=== PATIENT | female | born 1960 | race Caucasian/White ===

== ENCOUNTER 2017-12-06 16:18 | Inpatient (IN) | payer OTHER ==
[2017-12-06 16:52] LABS: Appearance,Urine Turbid (Clear); Bacteria,Urine Moderate /hpf; Bilirubin,Urine Negative (Negative); Blood,Urine Moderate (Negative); Color,Urine Yellow; Glucose,Urine (UA) Negative (Negative); Ketones,Urine Trace (Negative); Leukocyte Esterase,Urine Large (Negative); Mucus,Urine Rare /hpf; Nitrite,Urine Negative (Negative); Protein,Urine 2+ (Negative); RBC,Urine >182 /hpf (0-5); Specific Gravity,Urine 1.013 (1.001-1.035); Squamous Epithelial Cell,Urine <1 /hpf (0-4); Urobilinogen,Urine <2.0 mg/dL (<2.0); WBC,Urine >182 /hpf (0-5)
[2017-12-06] MEDS ORDERED: ONDANSETRON 4 MG/2 ML VIAL IVP STA (17:05)
[2017-12-06] MEDS ORDERED: cefTRIAXone IN SWFI 1,000 MG/10 ML SYRINGE IVP STA (17:05)
[2017-12-06] MEDS ORDERED: KETOROLAC 30 MG/ML 1 ML VIAL IVP STA (17:05)
[2017-12-06] MEDS ORDERED: SODIUM CHLORIDE 0.9% 2,000 ML IV ONE (17:05)
[2017-12-06] MEDS ORDERED: ACETAMINOPHEN TAB 500 MG TAB PO STA (17:05)
[2017-12-06] MEDS ORDERED: cefTRIAXone IN SWFI 2,000 MG/20 ML SYRINGE IVP STA (17:08)
--- NOTE | 2017-12-06 17:21 | ED ---
Abdominal Pain HPI - General Chief Complaint: Abdominal Pain Stated Complaint: Urogenital Time Seen by Provider: 12/06/17 17:00 Source: patient, RN notes reviewed Mode of arrival: ambulatory Limitations: no limitations - History of Present Illness Initial Comments: This is a 57-year-old female presents emergency Department chief complaint of dysuria, abdominal pain for one week. She states that she symptoms have progressively getting worse. She states she's been trying [id number] medications, increasing her fluid intake and water and cranberry juice. She states that has not helped. She is now developed severe flank pain, fever. She states she generalized feels fatigued and not her normal self. Patient denies any chest pain, shortness breath, headache, dizziness, diarrhea constipation. - Related Data Home Medications Medication Instructions Recorded Confirmed Acetaminophen [Tylenol] 325 mg PO Q4H 06/15/15 12/06/17 Atenolol 25 mg PO QAM 06/15/15 12/06/17 Levothyroxine Sodium [Synthroid] 125 mcg PO QAM 06/15/15 12/06/17 Potassium 99 mg PO DAILY 06/15/15 12/06/17 Omeprazole [PriLOSEC] 40 mg PO DAILY 01/21/16 12/06/17 Previous Rx's Medication Instructions Recorded Famotidine [Pepcid] 20 mg PO DAILY #14 tablet 01/21/16 Allergies Allergy/AdvReac Type Severity Reaction Status Date / Time Penicillins Allergy Rash/Hives Verified 12/06/17 16:28 Review of Systems ROS Statement: Those systems with pertinent positive or pertinent negative responses have been documented in the HPI. ROS Other: All systems not noted in ROS Statement are negative. Past Medical History Past Medical History: Hypertension Additional Past Medical History / Comment(s): BLEEDING ULCER History of Any Multi-Drug Resistant Organisms: None Reported Past Surgical History: Ear Surgery, Hysterectomy Additional Past Surgical History / Comment(s): RECONSTRUCTION OF EAR DRUM Past Psychological History: No Psychological Hx Reported Smoking Status: Never smoker Past Alcohol Use History: None Reported Past Drug Use History: None Reported General Exam Limitations: no limitations General appearance: alert, in no apparent distress Head exam: Present: atraumatic, normocephalic, normal inspection Respiratory exam: Present: normal lung sounds bilaterally. Absent: respiratory distress, wheezes, rales, rhonchi, stridor Cardiovascular Exam: Present: normal rhythm, tachycardia, normal heart sounds. Absent: systolic murmur, diastolic murmur, rubs, gallop, clicks GI/Abdominal exam: Present: soft, tenderness (Moderate suprapubic tenderness), normal bowel sounds. Absent: distended, guarding, rebound, rigid Back exam: Present: CVA tenderness (R), CVA tenderness (L) Skin exam: Present: warm, dry, intact, normal color. Absent: rash Course Vital Signs 12/06/17 12/06/17 12/06/17 16:25 17:45 19:03 Temperature 102.9 F H 99.1 F Pulse Rate 116 H 101 H 84 Respiratory 18 24 20 Rate Blood Pressure 133/92 124/58 96/55 O2 Sat by Pulse 96 95 95 Oximetry Medical Decision Making - Lab Data Result diagrams: 12/06/17 17:30 12/06/17 17:30 Lab Results 12/06/17 12/06/17 12/06/17 Range/Units 16:29 17:30 17:30 WBC 18.4 H (3.8-10.6) k/uL RBC 4.68 (3.80-5.40) m/uL Hgb 13.8 (11.4-16.0) gm/dL Hct 40.0 (34.0-46.0) % MCV 85.5 (80.0-100.0) fL MCH 29.5 (25.0-35.0) pg MCHC 34.5 (31.0-37.0) g/dL RDW 13.1 (11.5-15.5) % Plt Count 222 (150-450) k/uL Neutrophils % 81 % Lymphocytes % 12 % Monocytes % 5 % Eosinophils % 0 % Basophils % 0 % Neutrophils # 14.9 H (1.3-7.7) k/uL Lymphocytes # 2.2 (1.0-4.8) k/uL Monocytes # 0.9 (0-1.0) k/uL Eosinophils # 0.0 (0-0.7) k/uL Basophils # 0.1 (0-0.2) k/uL Sodium 137 (137-145) mmol/L Potassium 4.0 (3.5-5.1) mmol/L Chloride 99 (98-107) mmol/L Carbon Dioxide 25 (22-30) mmol/L Anion Gap 13 mmol/L BUN 14 (7-17) mg/dL Creatinine 1.11 H (0.52-1.04) mg/dL Est GFR (CKD-EPI)AfAm 64 (>60 ml/min/1.73 sqM) Est GFR (CKD-EPI)NonAf 56 (>60 ml/min/1.73 sqM) Glucose 112 H (74-99) mg/dL Plasma Lactic Acid Rajinder (0.7-2.0) mmol/L Calcium 8.9 (8.4-10.2) mg/dL Total Bilirubin 1.3 (0.2-1.3) mg/dL AST 34 (14-36) U/L ALT 48 (9-52) U/L Alkaline Phosphatase 95 (38-126) U/L Total Protein 7.1 (6.3-8.2) g/dL Albumin 4.0 (3.5-5.0) g/dL Urine Color Yellow Urine Appearance Turbid H (Clear) Urine pH 6.0 (5.0-8.0) Ur Specific [place] 1.013 (1.001-1.035) Urine Protein 2+ H (Negative) Urine Glucose (UA) Negative (Negative) Urine Ketones Trace H (Negative) Urine Blood Moderate H (Negative) Urine Nitrite Negative (Negative) Urine Bilirubin Negative (Negative) Urine Urobilinogen <2.0 (<2.0) mg/dL Ur Leukocyte Esterase Large H (Negative) Urine RBC >182 H (0-5) /hpf Urine WBC >182 H (0-5) /hpf Urine WBC Clumps Few H (None) /hpf Ur Squamous Epith Cells <1 (0-4) /hpf Urine Bacteria Moderate H (None) /hpf Urine Mucus Rare H (None) /hpf 12/06/17 Range/Units 17:30 WBC (3.8-10.6) k/uL RBC (3.80-5.40) m/uL Hgb (11.4-16.0) gm/dL Hct (34.0-46.0) % MCV (80.0-100.0) fL MCH (25.0-35.0) pg MCHC (31.0-37.0) g/dL RDW (11.5-15.5) % Plt Count (150-450) k/uL Neutrophils % % Lymphocytes % % Monocytes % % Eosinophils % % Basophils % % Neutrophils # (1.3-7.7) k/uL Lymphocytes # (1.0-4.8) k/uL Monocytes # (0-1.0) k/uL Eosinophils # (0-0.7) k/uL Basophils # (0-0.2) k/uL Sodium (137-145) mmol/L Potassium (3.5-5.1) mmol/L Chloride (98-107) mmol/L Carbon Dioxide (22-30) mmol/L Anion Gap mmol/L BUN (7-17) mg/dL Creatinine (0.52-1.04) mg/dL Est GFR (CKD-EPI)AfAm (>60 ml/min/1.73 sqM) Est GFR (CKD-EPI)NonAf (>60 ml/min/1.73 sqM) Glucose (74-99) mg/dL Plasma Lactic Acid Rajinder 1.1 (0.7-2.0) mmol/L Calcium (8.4-10.2) mg/dL Total Bilirubin (0.2-1.3) mg/dL AST (14-36) U/L ALT (9-52) U/L Alkaline Phosphatase (38-126) U/L Total Protein (6.3-8.2) g/dL Albumin (3.5-5.0) g/dL Urine Color Urine Appearance (Clear) Urine pH (5.0-8.0) Ur Specific [place] (1.001-1.035) Urine Protein (Negative) Urine Glucose (UA) (Negative) Urine Ketones (Negative) Urine Blood (Negative) Urine Nitrite (Negative) Urine Bilirubin (Negative) Urine Urobilinogen (<2.0) mg/dL Ur Leukocyte Esterase (Negative) Urine RBC (0-5) /hpf Urine WBC (0-5) /hpf Urine WBC Clumps (None) /hpf Ur Squamous Epith Cells (0-4) /hpf Urine Bacteria (None) /hpf Urine Mucus (None) /hpf Disposition Clinical Impression: Acute pyelonephritis, Nephrolithiasis, Left ureter dilated, Fever, Acute kidney injury Disposition: ADMITTED IP TO THIS [facility] Condition: Fair Referrals: Palmer Fontaine MD [Primary Care Provider] - 1-2 days
[2017-12-06 17:57] LABS: Basophils # (A) 0.1 k/uL (0-0.2); Basophils % (A) 0 %; Eosinophils % (A) 0 %; HGB 13.8 gm/dL (11.4-16.0); Lymphocytes # (A) 2.2 k/uL (1.0-4.8); Lymphocytes % (A) 12 %; MCH 29.5 pg (25.0-35.0); MCHC 34.5 g/dL (31.0-37.0); MCV 85.5 fL (80.0-100.0); Mean Platelet Volume 7.3; Monocytes # (A) 0.9 k/uL (0-1.0); Monocytes % (A) 5 %; Neutrophils # (A) 14.9 k/uL (1.3-7.7); Neutrophils % (A) 81 %; Platelet Count 222 k/uL (150-450); RBC 4.68 m/uL (3.80-5.40); RDW 13.1 % (11.5-15.5); WBC 18.4 k/uL (3.8-10.6)
[2017-12-06 18:18] LABS: Calcium 8.9 mg/dL (8.4-10.2); Total Bilirubin 1.3 mg/dL (0.2-1.3); Total Protein 7.1 g/dL (6.3-8.2)
--- NOTE | 2017-12-06 19:09 | CT ---
EXAMINATION TYPE: CT abdomen pelvis wo con DATE OF EXAM: 12/06/2017 COMPARISON: NONE HISTORY: Left side flank pain and hematuria. CT DLP: 1006.6 mGycm Automated exposure control for dose reduction was used. TECHNIQUE: Helical acquisition of images was performed from the lung bases through the pelvis. FINDINGS: LUNG BASES: Subsegmental consolidation at both lung bases. Atelectasis favored. LIVER/GB: Reduced attenuation of liver is associated with hepatic steatosis. PANCREAS: No significant abnormality is seen. SPLEEN: No significant abnormality is seen. ADRENALS: Mild thickening of the left adrenal gland. KIDNEYS: There is a 1.1 cm mid upper pole left renal calculus. There is hydronephrosis and perinephri c edema. Uterus prominent in size but there is no definite ureteral calculus. URINARY BLADDER: No significant abnormality is seen. ADENOPATHY: None visualized. OSSEOUS STRUCTURES: Hypertrophic and degenerative change of the spine. BOWEL: Bowel gas pattern nonspecific. Appendix not identified with certainty. OTHER: Aorta of normal caliber. No free fluid. No free air. IMPRESSION: 1. There is left-sided perinephric edema with a 1.1 cm mid to upper pole calculus. The ureter does ap pear to be prominent there is no evidence of ureteral calculus. No bladder calculus seen. Correlate f or recently passed stone otherwise consider obstructive changes secondary to be renal calculus with p ossible infection. Correlate with urinalysis. 2. Hepatic steatosis.
[2017-12-06] MEDS ORDERED: ONDANSETRON 4 MG/2 ML VIAL IVP PRN (19:28)
[2017-12-06] MEDS ORDERED: MORPHINE SULFATE 4 MG/ML SYRINGE IV PRN (19:28)
[2017-12-06] MEDS ORDERED: NALOXONE 0.4 MG/ML 1 ML VIAL IV PRN (19:28)
[2017-12-06] MEDS: SODIUM CHLORIDE 0.9% 1,000 ML IV SCH (20:13)
[2017-12-06 20:27] VITALS: BMI 39.9
--- NOTE | 2017-12-06 21:04 | P.GSCN ---
History of Present Illness Consult date: 12/06/17 History of present illness: This is a 57-year-old female whom we are asked to see for a urinary tract infection with sepsis, hydronephrosis, kidney stone. Patient who has a history of ureteral stones in the past days that for the past week she has had lower urinary tract symptoms dysuria frequency pressure and symptoms of urine infection. As the week progressed the symptoms pushed into her upper abdomen and into her flank. She had intermittent fever and chills during the week. The pain nausea and vomiting worsened such she presented to the emergency room today. In the emergency room she had a temperature 102.9, a white count of 18, 000. Her urine was infected. She had a computed tomography scan showing a 1.1 cm stone in her left upper pole, hydroureteronephrosis all the way down to the ureterovesical junction without obvious stone. The patient is interviewed at the bedside and is feeling much better this afternoon than she did when she presented to the emergency room. Based on her history, the appearance of the computed tomography scan and her present clinical state I suspect that she passed a ureteral stone. The patient has passed many ureteral stones in the past. They've never been surgically removed. She has never seen a urologist. The stones that never been collected to be analyzed. She is known about the left kidney stone for many years but it has been treated. There is not a history of chronic urinary infections. Review of Systems - Constitutional Reports as per HPI, Reports anorexia, Reports chills - Gastrointestinal Reports abdominal pain - Genitourinary Genitourinary: Reports as per HPI Past Medical History Past Medical History: GI Bleed, Hypertension Additional Past Medical History / Comment(s): BLEEDING ULCER History of Any Multi-Drug Resistant Organisms: None Reported Past Surgical History: Ear Surgery, Hysterectomy Additional Past Surgical History / Comment(s): RECONSTRUCTION OF EAR DRUM Past Anesthesia/Blood Transfusion Reactions: No Reported Reaction Past Psychological History: No Psychological Hx Reported Smoking Status: Never smoker Past Alcohol Use History: None Reported Past Drug Use History: None Reported - Past Family History Mother Family Medical History: No Reported History Medications and Allergies Home Medications Medication Instructions Recorded Confirmed Type Acetaminophen [Tylenol] 325 mg PO Q4H 06/15/15 12/06/17 History Atenolol 25 mg PO QAM 11/19/15 05/12/18 History Levothyroxine Sodium [Synthroid] 125 mcg PO QAM 06/15/15 12/06/17 History Potassium 99 mg PO DAILY 06/15/15 12/06/17 History Famotidine [Pepcid] 20 mg PO DAILY #14 tablet 01/21/16 12/06/17 Rx Omeprazole [PriLOSEC] 40 mg PO DAILY 01/21/16 12/06/17 History Allergies Allergy/AdvReac Type Severity Reaction Status Date / Time Penicillins Allergy Rash/Hives Verified 12/06/17 16:28 Surgical - Exam Vital Signs Temp Pulse Resp BP Pulse Ox 102.9 F H 116 H 18 133/92 96 12/06/17 16:25 12/06/17 16:25 12/06/17 16:25 12/06/17 16:25 12/06/17 16:25 - General well developed, well nourished, no distress - Eyes PERRL - ENT no hearing loss - Neck trachea midline - Respiratory normal expansion, normal respiratory effort - Cardiovascular Rhythm: regular - Abdomen Abdomen: soft, non tender - Integumentary no rash, no growths - Neurologic normal coordination, normal sensation - Musculoskeletal normal posture - Psychiatric oriented to time, oriented to person, oriented to place, speech is normal, memory intact Results - Labs 12/06/17 17:30 12/06/17 17:30 Abnormal Lab Results - Last 24 Hours (Table) 12/06/17 12/06/17 12/06/17 Range/Units 16:29 17:30 17:30 WBC 18.4 H (3.8-10.6) k/uL Neutrophils # 14.9 H (1.3-7.7) k/uL Creatinine 1.11 H (0.52-1.04) mg/dL Glucose 112 H (74-99) mg/dL Urine Appearance Turbid H (Clear) Urine Protein 2+ H (Negative) Urine Ketones Trace H (Negative) Urine Blood Moderate H (Negative) Ur Leukocyte Esterase Large H (Negative) Urine RBC >182 H (0-5) /hpf Urine WBC >182 H (0-5) /hpf Urine WBC Clumps Few H (None) /hpf Urine Bacteria Moderate H (None) /hpf Urine Mucus Rare H (None) /hpf Diabetes panel 12/06/17 Range/Units 17:30 Sodium 137 (137-145) mmol/L Potassium 4.0 (3.5-5.1) mmol/L Chloride 99 (98-107) mmol/L Carbon Dioxide 25 (22-30) mmol/L BUN 14 (7-17) mg/dL Creatinine 1.11 H (0.52-1.04) mg/dL Glucose 112 H (74-99) mg/dL Calcium 8.9 (8.4-10.2) mg/dL AST 34 (14-36) U/L ALT 48 (9-52) U/L Alkaline Phosphatase 95 (38-126) U/L Total Protein 7.1 (6.3-8.2) g/dL Albumin 4.0 (3.5-5.0) g/dL Calcium panel 12/06/17 Range/Units 17:30 Calcium 8.9 (8.4-10.2) mg/dL Albumin 4.0 (3.5-5.0) g/dL Pituitary panel 12/06/17 Range/Units 17:30 Sodium 137 (137-145) mmol/L Potassium 4.0 (3.5-5.1) mmol/L Chloride 99 (98-107) mmol/L Carbon Dioxide 25 (22-30) mmol/L BUN 14 (7-17) mg/dL Creatinine 1.11 H (0.52-1.04) mg/dL Glucose 112 H (74-99) mg/dL Calcium 8.9 (8.4-10.2) mg/dL Adrenal panel 12/06/17 Range/Units 17:30 Sodium 137 (137-145) mmol/L Potassium 4.0 (3.5-5.1) mmol/L Chloride 99 (98-107) mmol/L Carbon Dioxide 25 (22-30) mmol/L BUN 14 (7-17) mg/dL Creatinine 1.11 H (0.52-1.04) mg/dL Glucose 112 H (74-99) mg/dL Calcium 8.9 (8.4-10.2) mg/dL Total Bilirubin 1.3 (0.2-1.3) mg/dL AST 34 (14-36) U/L ALT 48 (9-52) U/L Alkaline Phosphatase 95 (38-126) U/L Total Protein 7.1 (6.3-8.2) g/dL Albumin 4.0 (3.5-5.0) g/dL - Imaging CT scan - abdomen: report reviewed, image reviewed CT scan - pelvis: report reviewed, image reviewed Assessment and Plan Assessment: Impression: Acute ureteral colic, urinary tract infection with sepsis, pyonephrosis , probable ureteral calculus passed, left renal stone Recommendations: Based on her clinical history and her present clinical status I believe she is passed a ureteral stone and face of the urine infection and she developed pyonephrosis due to the infection and obstructing stone that appears to have passed based on the CAT scan and are now improved clinical situation. At this point in time I do not think urologic surgical intervention is required. I would continue with antibiotics. A urologic standpoint she can be discharged tomorrow if she is afebrile and feeling well. Obviously she goes home the treatment would be an. Until the culture is finalized. She febrile or having more pain than I would continue the hospitalization. Treatment of the left renal stone will be elective at a later date as she has had this for some time. Time with Patient: Greater than 30
[2017-12-06] MEDS ORDERED: HYDROcodone/APAP 5-325MG 1 EACH TAB PO PRN (23:24)
[2017-12-06] MEDS ORDERED: TEMAZEPAM 15 MG CAP PO PRN (23:42)
[2017-12-06] MEDS ORDERED: ALPRAZolam 0.25 MG TAB PO PRN (23:42)
[2017-12-07] MEDS: PANTOPRAZOLE 40 MG/10 ML VIAL IVP SCH ×2 (00:07→09:03)
[2017-12-07] MEDS: KETOROLAC 30 MG/ML 1 ML VIAL IVP PRN ×2 (00:17→05:36)
[2017-12-07] MEDS: SODIUM CHLORIDE 0.9% 1,000 ML IV SCH ×4 (03:49→23:54)
--- NOTE | 2017-12-07 04:19 | HP ---
HISTORY AND PHYSICAL DATE OF SERVICE: 12/06/2017 CHIEF COMPLAINTS: Fever and back pain. HISTORY OF PRESENT ILLNESS: This 57-year-old woman with a past medical history of multiple medical problems including GI bleed, hypertension, history of bleeding also being followed by Dr. Palmer Fontaine in the outpatient setting, not feeling well since last Friday. The patient had dysuria. Subsequently patient had abdominal pain and back pain. Patient progressively getting worse. Patient was developing fever and came to [facility] and admitted for further evaluation and treatment. On admission, the patient was found to have white count of 18.4. UA shows multiple abnormalities and abdominal pelvis CAT scan was also done which showed evidence of left-sided perinephric edema with 1.1 cm mid to upper pole calculus and some prominence of the ureter with the and hepatic steatosis. There is no history any headache, loss of consciousness, seizures at this time. Broad- spectrum IV antibiotics initiated. Urology consultation has been sought. PAST MEDICAL HISTORY: History of GI bleed, hypertension, history of bleeding ulcer, history of previous urolithiasis. MEDICATIONS: Prior to admission: 1. Potassium 99 mg p.o. daily. 2. Prilosec 40 mg p.o. daily. 3. Synthroid 120 mcg p.o. daily. 4. Pepcid 20 mg p.o. daily. 5. Atenolol 25 mg p.o. 6. Tylenol 325 mg q.4h p.r.n. ALLERGIES: PENICILLIN. FAMILY HISTORY: No history of heart disease or strokes in the family. SOCIAL HISTORY: No history of smoking. No history of alcohol intake. REVIEW OF SYSTEMS: ENT: No diminished hearing or vision. CARDIOVASCULAR: No angina or palpitations. RESPIRATORY: As mentioned. GI: No nausea. : As mentioned earlier. NERVOUS SYSTEM: No numbness or weakness. ALLERGY/IMMUNOLOGY: No asthma. MUSCULOSKELETAL: As mentioned earlier. HEMATOLOGY: NO history of anemia. ENDOCRINE: Hypothyroidism. CONSTITUTIONAL: As mentioned earlier. DERMATOLOGY: negative. RHEUMATOLOGY: Negative. PSYCHIATRY: As mentioned earlier. PHYSICAL EXAMINATION: Alert and oriented x3. Pulse 84, blood pressure 106/62, respirations 16, temperature 98.4, pulse ox 94% on room air. HEENT: Conjunctivae normal. Oral mucosa moist. NECK: No jugular venous distention. No carotid bruit. No lymph node enlargement. CARDIOVASCULAR: S1, S2. No S3, no S4. RESPIRATORY: Breath sounds diminished in the bases. A few scattered rhonchi. No crackles. ABDOMEN: Soft. Mild diffuse discomfort on palpation. Bilateral renal angle tenderness and some tenderness in the back also present, left more than the right. Bowel sounds present. No ascites. No mass palpable. LEGS: No edema, no swelling. NERVOUS SYSTEM: Higher functions as mentioned. Moves all 4 limbs. No focal motor sensory deficit. LYMPHATICS: No lymphadenopathy in the neck, axillae, groin. SKIN: No ulcer, rash, bleeding. LAB STUDIES: WBC 18.5, hemoglobin 13.8, creatinine is 1.1, glucose 112. UA noted. ASSESSMENT: 1. Acute urinary tract infection with pyelonephritis bilateral, left more than the right with sepsis, present on admission. 2. Left-sided nephrolithiasis with possibly passed ureteric stone. 3. Creatinine 1.1 with mild acute renal failure. 4. Increased WBC. 5. History of gastrointestinal bleed. 6. Hypertension. 7. History of bleeding ulcer. 8. History of reconstructed eardrum. RECOMMENDATIONS AND DISCUSSION: This 57-year-old woman who presented with multiple medical issues, at this time I recommend to continue current management and symptomatic treatment. Otherwise, at this time broad-spectrum IV antibiotics, proton pump inhibitors. Pain medications. Neurology consultation. Follow cultures. Resume the home medications. DVT prophylaxis. Prognosis guarded because of multiple complex medical issues. Further recommendations to follow. Copy of dictation forwarded to Dr. Palmer Fontaine who is the primary physician. Discussed with the patient who understands and agrees. MMODL / IJN: [id number] /
[2017-12-07] MEDS ORDERED: cefTRIAXone IN SWFI 1,000 MG/10 ML SYRINGE IVP SCH (06:00)
[2017-12-07] MEDS: LEVOTHYROXINE 125 MCG TAB PO SCH (06:19)
[2017-12-07 08:28] LABS: Basophils % (A) 0 %; Eosinophils # (A) 0.1 k/uL (0-0.7); Eosinophils % (A) 1 %; HCT 35.7 % (34.0-46.0); HGB 11.6 gm/dL (11.4-16.0); Lymphocytes # (A) 1.6 k/uL (1.0-4.8); Lymphocytes % (A) 10 %; MCH 28.8 pg (25.0-35.0); MCHC 32.5 g/dL (31.0-37.0); MCV 88.6 fL (80.0-100.0); Mean Platelet Volume 7.6; Monocytes # (A) 0.7 k/uL (0-1.0); Monocytes % (A) 4 %; Neutrophils # (A) 13.3 k/uL (1.3-7.7); Neutrophils % (A) 84 %; Platelet Count 170 k/uL (150-450); RBC 4.03 m/uL (3.80-5.40); RDW 13.2 % (11.5-15.5); WBC 15.9 k/uL (3.8-10.6)
[2017-12-07] MEDS: ATENOLOL 25 MG TAB PO SCH (08:37)
[2017-12-07 08:41] LABS: Calcium 7.9 mg/dL (8.4-10.2); Potassium 3.9 mmol/L (3.5-5.1)
[2017-12-07] MEDS: POTASSIUM CHLORIDE ER 10 MEQ TAB.ER.PRT PO SCH (09:03)
[2017-12-07] MEDS: HEPARIN SODIUM,PORCINE 5,000 UNIT/ML 1 ML VIAL SQ SCH ×2 (09:04→21:11)
[2017-12-07] MEDS: ACETAMINOPHEN TAB 325 MG TAB PO PRN ×3 (12:06→23:57)
[2017-12-07] MEDS ORDERED: MORPHINE ORAL SOLN 10 MG/5 ML CUP PO PRN (12:28)
[2017-12-07] MEDS: cefTRIAXone IN SWFI 2,000 MG/20 ML SYRINGE IVP SCH (18:17)
--- NOTE | 2017-12-07 18:59 | PN ---
PROGRESS NOTE DATE OF SERVICE: 12/07/2017 This 57-year-old woman admitted with fever and back pain and pyelonephritis and possible sepsis also. The patient had left nephrolithiasis. Patient being closely monitored at this time. The creatinine is 1.08. White count is elevated at 15.9. The cultures are pending. The patient is running fever. PAST MEDICAL HISTORY: Reviewed. REVIEW OF SYSTEMS: CARDIOVASCULAR: No angina. RESPIRATORY: As mentioned earlier. GI: As mentioned earlier. : As mentioned earlier. NERVOUS SYSTEM: No numbness or weakness. CURRENT MEDICATIONS: 1. Tylenol 650 q.4h p.r.n. 2. [place] 5 mg q.p.m. 3. Xanax 0.5 t.i.d. 4. Tenormin 25 mg q.a.m. 5. Rocephin 1 g IV daily. 7. Heparin subcu b.i.d. 8. Toradol 15 daily. 9. Synthroid 120 mcg p.o. daily. 10.Narcan. 11.Zofran. 12.Protonix. 13.K-Dur. 14.Restoril. PHYSICAL EXAM: Patient is alert, oriented x3. Pulse 88, blood pressure 97/70, respiration 18, temperature 101.7, pulse ox 98% on room air. HEENT: Conjunctivae normal. CARDIOVASCULAR: S1, S2. RESPIRATORY: Breath sounds diminished in the bases. No rhonchi, no crackles. ABDOMEN: Soft, minimal discomfort on the left side of the abdomen. Left renal angle tenderness also present. LEGS: No edema, no swelling. NERVOUS SYSTEM: Higher functions as mentioned earlier, moves all 4 limbs, no focal deficits. LYMPHATICS: No lymphadenopathy in the neck, axillae, groin.. SKIN: No ulcer, rash or bleeding. LAB STUDIES: WBC 15.8, creatinine is 1.3 compared to yesterday 1.11. Other labs are noted. ASSESSMENT: 1. Acute urinary tract infection with pyelonephritis bilateral left more than right with sepsis present on admission. 2. Severe left-sided low ankle pain and as well as back pain. 3. Left-sided nephrolithiasis with possibly passed ureteric stone. 4. Creatinine 1.1 with mild acute renal failure. 5. Increased WBC. 6. History of GI bleed. 7. Hypertension. 8. History of bleeding ulcer. 9. History of reconstructive eardrum. RECOMMENDATIONS AND DISCUSSION: I recommend to continue current management and symptomatic treatment. Cultures are pending at this time. Continue broad spectrum IV antibiotics. Otherwise, Urology input appreciated. Guarded prognosis. Further recommendations to follow. MMODL / IJN: [id number] / MTDD
--- NOTE | 2017-12-07 23:20 | CONS ---
CONSULTATION DATE OF SERVICE: 12/07/2017. REASON FOR CONSULTATION: Fever. HISTORY OF PRESENT ILLNESS: The patient is a 57 -year-old female presenting to the ER at [facility] on 12/06/2017 with chief complaints of dysuria and abdominal pain that has been going on for about a week. The patient says she has noted for coming up with UTI with burning of urine and we discussed for which the patient said that she tried to take drink a lot of cranberry juice. However, her symptoms did not resolve and she presented to the hospital. The patient complaining of pain in her left flank area, more of a sharp pain 5/10, and radiating across the back area. The patient felt nauseated but no vomiting and with these symptoms the patient has been evaluated by the ER physician. On arrival to the ER the patient did have fever 102.90 Fahrenheit. The patient did have a fever on a daily basis with a fever of 101.7 this afternoon. The problem with this infectious disease consultation patient has been tachycardic and did have elevated white count of 18.4 down to 15.9. Her urine was significantly positive with large leukocyte esterases and more than 1-2 WBC. The patient did have a CT abdominal pelvis that has been suggestive of a left-sided perinephric edema with 1 to 1 cm mid to upper pole calculus. The urine does appear to be prominent with no evidence of any usual calculus. Urology has seen the patient for the same. The patient has been treated with Rocephin 1 g q.12. Infectious disease was consulted for further recommendation regarding antibiotic therapy. REVIEW OF SYSTEMS: CONSTITUTIONAL: Positive for weakness along with the fever and chills. Eyes no complaint. ENT no complaint. Respiratory no complaint. Cardiovascular no complaint. Genitourinary as per HPI. Gastrointestinal as per HPI. Musculoskeletal no complaint. Integumentary: No complaint. Psychological no complaint. Endocrine no complaint. Neurologic: No complaint. PAST MEDICAL HISTORY: Hypertension, peptic ulcer disease. PAST SURGICAL HISTORY: Reconstruction of the eardrum, hysterectomy. SOCIAL HISTORY: Denies smoking, drinking or drug use. FAMILY HISTORY: No pertinent findings noticed. ALLERGIES: PENICILLIN with a rash, however, tolerated cephalosporin without any problem. MEDICATION: Medications include the patient is currently on Tylenol, [place], Xanax, Tenormin, Rocephin 1 g q.12h, he is on Diflucan 152 x 1, heparin, Toradol. Synthroid, morphine sulfate Narcan Zofran Protonix K-Dur and Restoril. EXAMINATION: Blood pressure is 115/60 with a pulse of 90, temperature 100.5, T-max 101.7, 99% in room air. General description is a middle aged female up in the distress. No tachypnea or accessory muscle of respiration use. HEENT examination: No pallor or scleral icterus. Oral mucosa is moist. No pharyngeal erythema or thrush. Neck trachea central no thyromegaly. Lungs unlabored breathing clear to auscultation anteriorly. No wheeze or crackles. Heart S1, S2. Regular rate and rhythm. ABDOMEN: Soft, no tenderness. No guarding. No organomegaly. EXTREMITIES: No edema feet. Skin examination: No rash or mass palpable. Neurological: Patient is awake, alert, oriented times three. Mood and affect normal. LABS: Hemoglobin 11.6, white count 15.9, BUN of 15, creatinine 1.0. Electrolytes have been normal. Urine was significantly positive. Urine culture currently pending. Blood culture obtained currently pending. CT report as mentioned above. DIAGNOSTIC IMPRESSION AND PLAN: The patient presented to the hospital with dysuria, left flank pain along with a fever. The patient did have elevated white count tachycardia meeting criteria for SIRS source/sepsis, source is left-sided pyelonephritis complicated awareness is of a viral nephrosclerosis likely from enteric gram-negative pathogen and possibly Rocephin sensitive organism as the patient mentions slight clinical improvement since yesterday. 1. Patient with a PENICILLIN ALLERGY that will limit the number of antibiotics that could be safely used. However, tolerated Zosyn so far. PLAN: 1. We will change the Rocephin to 2 gram negative daily. 2. Aggressive IV fluid. 3. Depending upon the clinical response and culture, adjust her medications further if needed thank you for this consultation follow the patient along with you. MMODL / IJN: [id number] /
[2017-12-07 23:53] VITALS: RESP 18
[2017-12-08] MEDS: SODIUM CHLORIDE 0.9% 1,000 ML IV SCH ×2 (06:07→08:16)
[2017-12-08] MEDS: LEVOTHYROXINE 125 MCG TAB PO SCH (06:07)
[2017-12-08] MEDS: ACETAMINOPHEN TAB 325 MG TAB PO PRN (06:09)
[2017-12-08] MEDS ORDERED: PANTOPRAZOLE 40 MG TABLET PO SCH (07:30)
[2017-12-08 07:35] LABS: Basophils % (A) 0 %; Eosinophils # (A) 0.3 k/uL (0-0.7); Eosinophils % (A) 4 %; HCT 32.6 % (34.0-46.0); HGB 10.9 gm/dL (11.4-16.0); Lymphocytes # (A) 1.3 k/uL (1.0-4.8); Lymphocytes % (A) 14 %; MCH 28.8 pg (25.0-35.0); MCHC 33.3 g/dL (31.0-37.0); MCV 86.3 fL (80.0-100.0); Mean Platelet Volume 8.3; Monocytes # (A) 0.5 k/uL (0-1.0); Monocytes % (A) 5 %; Neutrophils % (A) 75 %; Platelet Count 161 k/uL (150-450); RBC 3.78 m/uL (3.80-5.40); RDW 12.9 % (11.5-15.5); WBC 9.4 k/uL (3.8-10.6)
[2017-12-08 08:06] LABS: Anion Gap 10 mmol/L; Blood Urea Nitrogen 9 mg/dL (7-17); Calcium 7.8 mg/dL (8.4-10.2); Carbon Dioxide 23 mmol/L (22-30); Chloride 109 mmol/L (98-107); Glucose 89 mg/dL (74-99); Sodium 142 mmol/L (137-145)
[2017-12-08] MEDS: HEPARIN SODIUM,PORCINE 5,000 UNIT/ML 1 ML VIAL SQ SCH (08:17)
[2017-12-08] MEDS: cefTRIAXone IN SWFI 2,000 MG/20 ML SYRINGE IVP SCH (08:17)
[2017-12-08] MEDS: ATENOLOL 25 MG TAB PO SCH (08:17)
[2017-12-08] MEDS: POTASSIUM CHLORIDE ER 10 MEQ TAB.ER.PRT PO SCH (08:24)
[2017-12-08] MEDS ORDERED: FLUCONAZOLE 150 MG TAB PO ONE (09:00)
--- NOTE | 2017-12-08 12:45 | PN ---
PROGRESS NOTE DATE OF SERVICE: 12/08/2017 REASON FOR FOLLOWUP: Left pyelonephritis. INTERVAL HISTORY: The patient did spike a fever 100.5 last night. The patient has been afebrile since then. She is feeling better. Breathing comfortably. Denies having any chest pain, shortness of breath, no cough, no abdominal pain, or any diarrhea and is fighting to go home. PHYSICAL EXAMINATION: Blood pressure 105/68 with a pulse of 81, temperature 98.2, T-max is 101.5. She is 94% on room air. General description is a middle-aged female, up in the chair in no distress/respiratory system: Unlabored breathing clear to auscultation anteriorly heart S1, S2. Regular rate and rhythm and rhythm no tenderness. LABS: Hemoglobin 10.8, white count 9.4 with a BUN of 9, creatinine 0.3. Blood culture negative. Urine culture currently pending. DIAGNOSTIC IMPRESSION AND PLAN: Patient with left-sided pyelonephritis. We still waiting for the culture to finalize to determine discharge antibiotics. Currently, discharge is on hold as the cultures were not finalized. RN to call the micro lab to get the final status on those cultures, if they are back today, will be able to discharge home. However, hold the discharge. Keep the patient on IV Rocephin until the patient evaluated tomorrow. Continue supportive care. WANL / PROSPERN: [id number] /
[2017-12-08 16:29] VITALS: BP 148/83; PULSE 84; TEMP 99
--- NOTE | 2017-12-09 08:31 | DS ---
DISCHARGE SUMMARY DATE OF SERVICE: 12/08/2017. FINAL DIAGNOSES: 1. Acute urinary tract infection with pyelonephritis, bilateral, left more than right with sepsis due to Escherichia coli present on admission. 2. Severe left-sided hand renal angle pain and as well as back pain. 3. Left-sided nephrolithiasis and as well as possibly passed ureteric stone. 4. Creatinine 1.1 with mild acute renal failure. 5. Increased WBC. 6. History of gastrointestinal bleed. 7. Hypertension. 8. History of bleeding ulcer. 9. History of reconstructed ear drum. DISCHARGE DISPOSITION: The patient will be discharged in a stable condition with guarded prognosis. Patient is extremely keen on going home once Infectious Disease clears the patient for discharge. HISTORY OF PRESENT ILLNESS: This 53-year-old woman with past medical history was admitted with pyelonephritis and sepsis and UTI. Patient was followed by Dr. Palmer Fontaine in the outpatient setting. Patient improved significantly. E coli is grown and the patient is keen on going home. Patient discharged in stable condition and guarded prognosis. Following diet, cardiac diet. Activity limited until followup. Follow up with Dr. Palmer Fontaine and Dr. Corral as advised. Follow up with Dr. Colón as advised, Infectious disease. MEDICATIONS ARE: 1. Tylenol 325 mg q.4 p.r.n. 2. Atenolol 25 mg q.a.m. 3. Ceftin 500 mg p.o. b.i.d. for 12 days. 4. Pepcid 20 mg p.o. daily. 5. Synthroid 125 mcg p.o. q.a.m. 6. Prilosec 40 mg p.o. q.a.m. 7. Potassium 99 mg p.o. daily. MMODL / IJN: [id number] /
== END 2017-12-08 17:36 | disposition home or self-care (01) | DRG 872 ==
LOC: EC 16:18 → 6PED 19:28
PROVIDERS: ADMIT Hospitalist; ATTEND Hospitalist
DX: A41.51 Sepsis due to Escherichia coli [E. coli] (principal); N20.2 Calculus of kidney with calculus of ureter; N17.9 Acute kidney failure, unspecified; Z79.899 Other long term (current) drug therapy; Z87.11 Personal history of peptic ulcer disease; Z87.442 Personal history of urinary calculi; Z88.0 Allergy status to penicillin; Z90.710 Acquired absence of both cervix and uterus; Z79.890 Hormone replacement therapy; K76.0 Fatty (change of) liver, not elsewhere classified; M25.572 Pain in left ankle and joints of left foot; I10 Essential (primary) hypertension
CPT/HCPCS: 36415; 74176; 80048; 80053; 81001; 83605; 85025; 87040; 87077; 87086; 87186; 96361; 96374; 96375; 99285

== ENCOUNTER → 2020-08-08 | Outpatient (CLI) | payer SELFPAY | END | disposition home or self-care (01) | LOC: LABWHC1 13:12 | PROVIDERS: ATTEND Emergency Medicine | DX: Z20.822 Contact with and (suspected) exposure to COVID-19 (principal) | CPT/HCPCS: U0003; C9803; U0005 ==

== ENCOUNTER → 2021-08-31 | Outpatient (CLI) | payer BC ==
--- NOTE | 2021-08-31 09:17 | MM ---
Reason for exam: screening (asymptomatic). Last mammogram was performed 6 years and 3 months ago. History: Patient is postmenopausal. Benign US left guided mammotome of the left breast, December 07, 2007. Took hormonal contraceptives for 3 years. Took estrogen for 3 years. Physical Findings: A clinical breast exam by your physician is recommended on an annual basis and results should be correlated with mammographic findings. MG 3D Screening Mammo W/Cad Bilateral CC and MLO view(s) were taken. Prior study comparison: June 12, 2015, bilateral MG 3d screening mammo w/cad. November 05, 2007, bilateral diagnostic digital mammog. There are scattered fibroglandular densities. There is no discrete abnormality. No significant changes when compared with prior studies. ASSESSMENT: Negative, BI-RAD 1 RECOMMENDATION: Routine screening mammogram of both breasts in 1 year.
== END | disposition home or self-care (01) ==
LOC: RADMAMWWP 06:59
PROVIDERS: ATTEND Family Medicine
DX: Z12.39 Encounter for other screening for malignant neoplasm of breast (principal)
CPT/HCPCS: 77063; 77067

== ENCOUNTER → 2021-09-03 | Outpatient (CLI) | payer BC ==
[2021-09-04 16:54] LABS: Coronavirus SARS CoV-2 Not Detected (Not Detected)
== END | disposition home or self-care (01) ==
LOC: LABPAT 09:06
PROVIDERS: ATTEND Surgery Plastic and Reconstructive Surgery
DX: Z03.818 Encounter for observation for suspected exposure to other biological agents ruled out (principal)

== ENCOUNTER 2021-09-06 07:01 | Day surgery (SDC) | payer BC ==
[2021-09-04 11:40] VITALS: BMI 47.2
[~2021-09-06 07:01] MED LIST: LACTATED RINGERS 1,000 ML IV SCH; LIDOCAINE 1% (10MG/ML) FOR IV START INTRADERMA PRN
--- NOTE | 2021-09-06 07:32 | P.GSHP ---
History of Present Illness H&P Date: 09/06/21 CHIEF COMPLAINT: Colon screen HISTORY OF PRESENT ILLNESS: The patient is a 61-year-old female who presents for colon screen. Lower endoscopy was offered for further evaluation and management. PAST MEDICAL HISTORY: Please see list. PAST SURGICAL HISTORY: Please see list. MEDICATIONS: Please see list. ALLERGIES: Please see list. SOCIAL HISTORY: No illicit drug use FAMILY HISTORY: No reports of Crohn disease or ulcerative colitis. REVIEW OF ORGAN SYSTEMS: CONSTITUTIONAL: No reports of fevers or chills. PHYSICAL EXAM: VITAL SIGNS: Stable GENERAL: Well-developed pleasant in no acute distress. HEENT: No scleral icterus. Extraocular movements grossly intact. Moist buccal mucosa. NECK: Supple without lymphadenopathy. CHEST: Unlabored respirations. Equal bilateral excursions. CARDIOVASCULAR: Regular rate and rhythm. Distal 2+ pulses. ABDOMEN: Soft, nontender, nondistended. MUSCULOSKELETAL: No clubbing, cyanosis, or edema. ASSESSMENT: 1. Colon screen. PLAN: 1. Recommend proceeding with a lower endoscopy Past Medical History Past Medical History: Asthma, GI Bleed, Hearing Disorder / Deafness, Hypertension, Osteoarthritis (OA), Thyroid Disorder Additional Past Medical History / Comment(s): BLEEDING ULCER IN THE PAST, MIGRAINES History of Any Multi-Drug Resistant Organisms: None Reported Past Surgical History: Ear Surgery, Hysterectomy Additional Past Surgical History / Comment(s): RECONSTRUCTION OF EAR DRUM, LEFT LITTLE FINGER SURGERY Past Anesthesia/Blood Transfusion Reactions: No Reported Reaction Smoking Status: Never smoker - Past Family History Mother Family Medical History: No Reported History Father Family Medical History: Diabetes Mellitus Medications and Allergies Home Medications Medication Instructions Recorded Confirmed Type Acetaminophen [Tylenol] 325 mg PO Q4H PRN 06/15/15 09/04/21 History Levothyroxine Sodium [Synthroid] 150 mcg PO QAM 06/15/15 09/04/21 History Potassium 99 mg PO DAILY 06/15/15 09/04/21 History atenoloL 50 mg PO QAM 06/15/15 09/04/21 History Omeprazole [PriLOSEC] 40 mg PO DAILY 01/21/16 09/04/21 History Citalopram Hydrobromide [CeleXA] 20 mg PO DAILY 09/04/21 09/04/21 History Ibuprofen [Motrin] 600 mg PO Q8HR PRN 09/04/21 09/04/21 History Allergies Allergy/AdvReac Type Severity Reaction Status Date / Time Penicillins Allergy Rash/Hives Verified 09/04/21 11:02
[2021-09-06 07:33] VITALS: RESP 16; TEMP 97.8
[2021-09-06] MEDS ORDERED: PROPOFOL 10 MG/ML 20 ML VIAL IV ONE (08:11)
--- NOTE | 2021-09-06 08:57 | P.OP ---
Date of Procedure: 09/06/21 Description of Procedure: PREOPERATIVE DIAGNOSIS: Colonoscopy screening POSTOPERATIVE DIAGNOSIS: Tubular adenoma cecum Tubular adenoma transverse colon Sigmoid diverticulosis Internal hemorrhoids, grade 2 OPERATION: Colonoscopy to the ileocecal valve and appendiceal orifice, cecum Colonoscopy with hot snare polypectomy Colonoscopy with cold forceps biopsy SURGEON: Tiffanie Bennett MD. ANESTHESIA: MAC. INDICATIONS: The patient is an 61-year-old male who presents for her first colonoscopy screening. Benefits and risks were described and informed consent was obtained. DESCRIPTION OF PROCEDURE: The patient had undergone Sutab prep. The patient had been brought into the operating room and laid in the left lateral decubitus position. After adequate intravenous sedation, the rectum was examined with 2% lidocaine jelly. External hemorrhoids were encountered. The rectal tone was within normal limits. No lesions were palpated in the rectal vault. An Olympus colonoscope was advanced until the cecum, ileocecal valve and appendiceal orifice were clearly viewed. The prep was excellent. Few sigmoid diverticulosis was encountered. Colonic polyps were found and removed. No evidence of focal colitis was found. Retroflexion of the scope demonstrated grade 2 internal hemorrhoids without act maryuri bleeding or inflammation. The colon was desufflated. The patient had tolerated the procedure well. Withdrawal time was over 6 minutes. FINDINGS: Aronchick preparation quality scale 1 (1-5) Internal hemorrhoids, grade 2 External hemorrhoids, grade 1. No arteriovenous malformations. Few sigmoid diverticulosis Removal of 2 polyps: - Snare polypectomy midtransverse colon, 5 mm tubulovillous adenoma polyp. - Cold forceps biopsy at cecum, 4 mm polyp. No focal colitis. RECOMMENDATIONS: Repeat colonoscopy in 3 years, 2024 Plan - Discharge Summary Discharge Rx Participant: No New Discharge Prescriptions: Continue Levothyroxine Sodium [Synthroid] 150 mcg PO QAM atenoloL 50 mg PO QAM Potassium 99 mg PO DAILY Acetaminophen [Tylenol] 325 mg PO Q4H PRN PRN Reason: Pain Omeprazole [PriLOSEC] 40 mg PO DAILY Citalopram Hydrobromide [CeleXA] 20 mg PO DAILY Ibuprofen [Motrin] 600 mg PO Q8HR PRN PRN Reason: Pain Discharge Medication List Acetaminophen [Tylenol] 325 mg PO Q4H PRN 06/15/15 [History] Levothyroxine Sodium [Synthroid] 150 mcg PO QAM 06/15/15 [History] Potassium 99 mg PO DAILY 06/15/15 [History] atenoloL 50 mg PO QAM 06/15/15 [History] Omeprazole [PriLOSEC] 40 mg PO DAILY 01/21/16 [History] Citalopram Hydrobromide [CeleXA] 20 mg PO DAILY 09/04/21 [History] Ibuprofen [Motrin] 600 mg PO Q8HR PRN 09/04/21 [History] Follow up Appointment(s)/Referral(s): Tiffanie Bennett MD [STAFF PHYSICIAN] - As Needed Patient Instructions/Handouts: Colorectal Polyps (DC) Activity/Diet/Wound Care/Special Instructions: Repeat colonoscopy 3 years, 2024 Discharge Disposition: HOME SELF-CARE
[2021-09-06 08:59] VITALS: BP 115/79; PULSE 60
== END 2021-09-06 09:33 | disposition home or self-care (01) ==
LOC: ORWHC2ENDO 07:01
PROVIDERS: ATTEND Surgery Plastic and Reconstructive Surgery
DX: Z12.11 Encounter for screening for malignant neoplasm of colon (principal); D12.3 Benign neoplasm of transverse colon; K57.30 Diverticulosis of large intestine without perforation or abscess without bleeding; K64.8 Other hemorrhoids
CPT/HCPCS: 45380; 45385; 88305; J2704

== ENCOUNTER 2023-05-30 11:08 | Emergency (ER) | payer OTHER ==
--- NOTE | 2023-05-30 11:49 | ED ---
Fall HPI - General Chief Complaint: Fall Stated Complaint: fall head and arm pain Time Seen by Provider: 05/30/23 11:29 Source: patient, RN notes reviewed Mode of arrival: ambulatory - History of Present Illness Initial Comments: Patient is a 63-year-old female presented ER with chief complaint of a fall. Patient states when she was trying to get out of a car yesterday she tripped over the curb and landed on her right hand and forehead. Patient denies loss of consciousness, blood thinners, nausea/vomiting since incident. Patient states she has been having a slight headache since the incident over her right eye. Patient also states her right hand having mild swelling over the third MCP joint last night and now it is gotten worse. Denies any paresthesias or radiating pain. She has been taking tylenol for pain control. Patient denies neck pain, back pain, or any other injuries. - Related Data Home Medications Medication Instructions Recorded Confirmed Acetaminophen [Tylenol] 325 mg PO Q4H PRN 06/15/15 09/06/21 Levothyroxine Sodium [Synthroid] 150 mcg PO QAM 06/15/15 09/06/21 Potassium 99 mg PO DAILY 06/15/15 09/06/21 atenoloL 50 mg PO QAM 06/15/15 09/06/21 Omeprazole [PriLOSEC] 40 mg PO DAILY 01/21/16 09/06/21 Citalopram Hydrobromide [CeleXA] 20 mg PO DAILY 09/04/21 09/06/21 Ibuprofen [Motrin] 600 mg PO Q8HR PRN 09/04/21 09/06/21 Allergies Allergy/AdvReac Type Severity Reaction Status Date / Time Penicillins Allergy Rash/Hives Verified 05/30/23 11:23 Review of Systems ROS Statement: Those systems with pertinent positive or pertinent negative responses have been documented in the HPI. ROS Other: All systems not noted in ROS Statement are negative. Past Medical History Past Medical History: GI Bleed, Hypertension Additional Past Medical History / Comment(s): BLEEDING ULCER History of Any Multi-Drug Resistant Organisms: None Reported Past Surgical History: Ear Surgery, Hysterectomy Additional Past Surgical History / Comment(s): RECONSTRUCTION OF EAR DRUM Past Anesthesia/Blood Transfusion Reactions: No Reported Reaction Past Psychological History: No Psychological Hx Reported Smoking Status: Never smoker Past Alcohol Use History: None Reported Past Drug Use History: None Reported - Past Family History Mother Family Medical History: No Reported History Father Family Medical History: Diabetes Mellitus General Exam Limitations: no limitations General appearance: alert, in no apparent distress Head exam: Present: other (hematome noted on right forehead with overlying abrasion) Eye exam: Present: normal appearance Pupils: Present: normal accommodation Neck exam: Present: normal inspection. Absent: tenderness, meningismus, lymphadenopathy Respiratory exam: Present: normal lung sounds bilaterally. Absent: respiratory distress, wheezes, rales, rhonchi, stridor Cardiovascular Exam: Present: regular rate, normal rhythm, normal heart sounds. Absent: systolic murmur, diastolic murmur, rubs, gallop, clicks Extremities exam: Present: other (limited active ROM to fingers due to swelling of right hand. Tenderness to PIP joint of 3rd and 4th digits. ) Course Vital Signs 05/30/23 05/30/23 11:21 12:08 Temperature 98.1 F 98.3 F Pulse Rate 59 L 71 Respiratory 20 18 Rate Blood Pressure 143/82 O2 Sat by Pulse 96 97 Oximetry Medical Decision Making - Medical Decision Making Was pt. sent in by a medical professional or institution (, PA, VISUAL TRAINING AIDE, urgent care, hospital, or [place] health care facility...) When possible be specific @ -No Did you speak to anyone other than the patient for history (EMS, parent, family, police, friend...)? What history was obtained from this source @ -No Did you review nursing and triage notes (agree or disagree)? Why? @ -I reviewed and agree with nursing and triage notes Were old charts reviewed (outside hosp., previous admission, EMS record, old EKG, old radiological studies, urgent care reports/EKG's, [place] health care facility records)? Report findings @ -No old charts were reviewed Differential Diagnosis (chest pain, altered mental status, abdominal pain women, abdominal pain men, vaginal bleeding, weakness, fever, dyspnea, syncope, headache, dizziness, GI bleed, back pain, seizure, CVA, palpatations, mental health, musculoskeletal)? @ -Differential Headache: Migraine, tension, cluster, carbon monoxide, central venous thrombosis, pension karma temporal arteritis, acute closure glaucoma, intercranial hemorrhage, mastoiditis, sinusitis, head injury, this is not meant to be an all-inclusive list. EKG interpreted by me (3pts min.). @ -[None X-rays interpreted by me (1pt min.). @ -X-ray of right hand shows no acute fracture/dislocations. CT interpreted by me (1pt min.). @ -CT of brain and cervical spine shows no acute fractures/dislocations/intracranial hemorrhage or mass effect. U/S interpreted by me (1pt. min.). @ -None done What testing was considered but not performed or refused? (CT, X-rays, U/S, labs)? Why? @ -None What meds were considered but not given or refused? Why? @ -None Did you discuss the management of the patient with other professionals (professionals i.e. , PA, VISUAL TRAINING AIDE, lab, RT, psych nurse, clinical social work therapist, supervisor curing room, teacher, liaison officer, showcase trimmer)? Give summary @ -No Was smoking cessation discussed for >3mins.? @ -No Was critical care preformed (if so, how long)? @ -No Were there social determinants of health that impacted care today? How? (Homelessness, low income, unemployed, alcoholism, drug addiction, transportation, low edu. Level, literacy, decrease access to med. care, detention, rehab)? @ -No Was there de-escalation of care discussed even if they declined (Discuss DNR or withdrawal of care, Hospice)? DNR status @ -No What co-morbidities impacted this encounter? (DM, HTN, Smoking, COPD, CAD, Cancer, CVA, ARF, Chemo, Hep., AIDS, mental health diagnosis, sleep apnea, morbid obesity)? @ -None Was patient admitted / discharged? Hospital course, mention meds given and route, prescriptions, significant lab abnormalities, going to OR and other pertinent info. @ -Discharged. X-ray of right hand shows no acute fracture/dislocations. CT of brain and cervical spine shows no acute fractures/dislocations/intracranial hemorrhage or mass effect. Patient recieved IM Toradol in the ER for pain. Patient advised to use OTC tylenol and Motrin for pain control. Patients right hand will be wrapped for support at discharge. Patient will be discharged home in stable condition with instructions to follow-up with her PCP. Patient expressed understanding. Undiagnosed new problem with uncertain prognosis? @ -No Drug Therapy requiring intensive monitoring for toxicity (Heparin, Nitro, Insulin, Cardizem)? @ -No Were any procedures done? @ -No Diagnosis/symptom? @ -Scalp hematoma/contusion, right hand injury/sprain Acute, or Chronic, or Acute on Chronic? @ -Acute Uncomplicated (without systemic symptoms) or Complicated (systemic symptoms)? @ -Uncomplicated Side effects of treatment? @ -No Exacerbation, Progression, or Severe Exacerbation? @ -No Poses a threat to life or bodily function? How? (Chest pain, [place], [place], pneumonia, PE, COPD, DKA, ARF, appy, cholecystitis, CVA, Diverticulitis, Homicidal, Suicidal, threat to staff... and all critical care pts) @ -No - Radiology Data Radiology results: report reviewed, image reviewed Disposition Clinical Impression: Hand sprain, Scalp hematoma Disposition: HOME SELF-CARE Condition: Stable Instructions (If sedation given, give patient instructions): Fall Prevention for Older Adults (ED) Additional Instructions: Please return to the Emergency Department if symptoms worsen or any other concerns. Is patient prescribed a controlled substance at d/c from ED?: No Referrals: Palmer Fontaine MD [Primary Care Provider] - 1-2 days Time of Disposition: 13:20
[2023-05-30 12:15] VITALS: BP 143/82; PULSE 71; RESP 18; TEMP 98.3
--- NOTE | 2023-05-30 12:23 | XR ---
EXAMINATION TYPE: XR hand complete 3 views RT DATE OF EXAM: 05/30/2023 COMPARISON: NONE HISTORY: 63-year-old female swelling, bruising, pain after fall yesterday TECHNIQUE: 3 views FINDINGS: Scattered mild osteophytic spurring throughout the first IP and remainder of the DIP joints . [id number] degenerative spurring base of the thumb. No acute fracture, subluxation, or disloc ation seen. Prominent dorsal soft tissue swelling of the hand. IMPRESSION: Prominent dorsal soft tissue swelling. Mild scattered osteoarthritic change. No acute osseous abnorma lity seen.
--- NOTE | 2023-05-30 12:32 | CT ---
EXAMINATION TYPE: CT brain lacey abraham DATE OF EXAM: 05/30/2023 COMPARISON: None HISTORY: fall, pain CT DLP: 1961.2 mGycm Automated exposure control for dose reduction was used. TECHNIQUE: CT scan of the head and cervical spine are performed without contrast. FINDINGS: There is no acute intracranial hemorrhage, mass effect, or midline shift identified. The ventricles and sulci are within normal limits in size. The globes are intact and the visualized sin uses are clear. There is a soft tissue hematoma overlying the subcutaneous tissues. Calvarium intact. Changes of mild right-sided mastoiditis. Cervical spine is visualized in its entirety from C1 through upper thoracic levels and demonstrates s atisfactory alignment without evidence of acute fracture or dislocation. Prevertebral soft tissue ap pears within normal limits. The C1-C2 articulation is unremarkable. Moderate to severe degenerative disc disease C5-6 and C6-C7 with straightening of the cervical spine. Grade 1 anterolisthesis C3-4 a nd C4-5. Multilevel facet arthropathy. IMPRESSION: 1. There is no acute fracture or dislocation evident in the cervical spine. 2. No acute intracranial hemorrhage, mass effect, or midline shift is seen. There is a large soft tis russ subcutaneous hematoma overlying the right frontal bone. No acute fracture.
[2023-05-30] MEDS ORDERED: KETOROLAC 15 MG/ML 1 ML VIAL IM STA (12:36)
== END 2023-05-30 13:41 | disposition home or self-care (01) ==
LOC: EC 11:08
DX: S63.92XA Sprain of unspecified part of left wrist and hand, initial encounter (principal); S00.83XA Contusion of other part of head, initial encounter; I10 Essential (primary) hypertension; Z79.899 Other long term (current) drug therapy; Z88.0 Allergy status to penicillin; W01.10XA Fall on same level from slipping, tripping and stumbling with subsequent striking against unspecified object, initial encounter
CPT/HCPCS: 73130; 72125; 70450; 99284; 96372; J1885

== ENCOUNTER → 2023-08-21 | Outpatient (CLI) | payer OTHER ==
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
--- NOTE | 2023-08-21 12:30 | XR ---
EXAMINATION TYPE: XR shoulder complete 3 views RT, XR knee complete 3 views RT DATE OF EXAM: 08/21/2023 Comparison: None Clinical History: 63-year-old female S13.4XXA, SPRAIN LIGAMENTS CERVICAL SPINE, S43.90XA, S83.91XA Findings: Right shoulder: Moderate to severe degenerative joint space narrowing at the AC joint. There is marginal spurring inc luding inferior spurring and capsular hypertrophy. Subacromial space is preserved. No acute fracture, subluxation, dislocation. Right knee: There is tricompartmental degenerative change. Bulky marginal spurring at the lateral and patellofemo ral compartments. Moderate to severe loss of cartilage and joint space in the lateral compartment and probably moderate in the patellofemoral compartment as well. Small knee joint effusion is nonspecifi c, probably reactive. No acute fracture, subluxation, or dislocation. Impression: 1. Right shoulder: Moderate to severe AC joint OA. Inferior spurring may contribute to subacromial im pingement. No acute osseous abnormality seen. 2. Right knee: Tricompartmental osteoarthrosis, moderate to severe in the lateral compartment and pro bably moderate in the patellofemoral compartment. Small knee joint effusion probably reactive. No acu te osseous abnormality seen.
== END | disposition home or self-care (01) ==
LOC: RADCTMAIN 11:18
PROVIDERS: ATTEND Emergency Medicine
DX: M17.11 Unilateral primary osteoarthritis, right knee (principal); M19.011 Primary osteoarthritis, right shoulder; M50.320 Other cervical disc degeneration, mid-cervical region, unspecified level; M25.461 Effusion, right knee; S13.4XXA Sprain of ligaments of cervical spine, initial encounter; S43.90XA Sprain of unspecified parts of unspecified shoulder girdle, initial encounter; S83.91XA Sprain of unspecified site of right knee, initial encounter; X58.XXXA Exposure to other specified factors, initial encounter
CPT/HCPCS: 72125

== ENCOUNTER 2023-09-08 22:47 | Emergency (ER) | payer OTHER ==
[2023-09-08 23:18] VITALS: RESP 16; TEMP 98.1
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
[2023-09-09 00:19] VITALS: BP 116/50; PULSE 82
== END 2023-09-08 23:40 | disposition home or self-care (01) ==
LOC: EC 22:47
DX: S00.83XA Contusion of other part of head, initial encounter (principal); I10 Essential (primary) hypertension; Y04.0XXA Assault by unarmed brawl or fight, initial encounter
CPT/HCPCS: 99283

== ENCOUNTER → 2023-10-03 | Outpatient (CLI) | payer OTHER ==
--- NOTE | 2023-10-05 17:02 | MM ---
Reason for Exam: Screening (asymptomatic). Last screening mammogram was performed 12 month(s) ago. Patient History: Menarche at age 11. First Full-Term at age 31. Late child-bearing (after 31). Hysterectomy at age 35. Postmenopausal. Patient has history of breast feeding. Estrogen for 3 years until age 41. Hormonal Contraceptives for 3 years until age 41. 12/07/2007, Benign Core Biopsy on the left side. Risk Values: Luz 5 year model risk: 2.7%. NCI Lifetime model risk: 12.1%. Prior Study Comparison: 06/12/2015 Bilateral Screening Mammogram, [facility]. 08/31/2021 Bilateral Screening Mammogram, [facility]. 09/27/2022 Bilateral MG 3D screening mammo w/cad, [facility]. Tissue Density: There are scattered areas of fibroglandular density. Findings: Analyzed By CAD. Microclip left breast from prior biopsy. There is no suspicious group of microcalcifications or new suspicious mass in either breast. Overall Assessment: Negative, BI-RAD 1 Management: Screening Mammogram of both breasts in 1 year. . Patient should continue monthly self-breast exams. A clinical breast exam by your physician is recommended on an annual basis. This exam should not preclude additional follow-up of suspicious palpable abnormalities. Note on Luz scores and lifetime risk: 1. A Luz score greater than 3% is considered moderate risk. If this is the case, consider specialist referral to assess eligibility for a risk reducing agent. 2. If overall lifetime risk for the development of breast cancer is 20% or higher, the patient may qualify for future screening with alternating mammogram and breast MRI. Electronically signed and approved by: Doris Blanchard M.D. Radiologist
== END | disposition home or self-care (01) ==
LOC: RADMAMWWP 07:28
PROVIDERS: ATTEND Family Medicine
DX: Z12.31 Encounter for screening mammogram for malignant neoplasm of breast (principal); Z78.0 Asymptomatic menopausal state
CPT/HCPCS: 77063; 77067

== ENCOUNTER 2024-06-30 16:43 | Emergency (ER) | payer OTHER ==
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
[2024-06-30 18:36] VITALS: BP 177/86; PULSE 71; RESP 18; TEMP 97.7
== END 2024-06-30 18:34 | disposition home or self-care (01) ==
LOC: EC 16:43
DX: S00.83XA Contusion of other part of head, initial encounter (principal); Z88.0 Allergy status to penicillin; Y09 Assault by unspecified means
CPT/HCPCS: 70150; 99283

== ENCOUNTER → 2024-07-01 | Outpatient (CLI) | payer OTHER ==
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
== END | disposition home or self-care (01) ==
LOC: RADCTMAIN 16:52
PROVIDERS: ATTEND Emergency Medicine
DX: S00.83XA Contusion of other part of head, initial encounter (principal); G44.301 Post-traumatic headache, unspecified, intractable; J34.2 Deviated nasal septum
CPT/HCPCS: 70450; 70486

== ENCOUNTER 2024-11-04 07:44 | Day surgery (SDC) | payer BC, OTHER ==
[2024-11-02 11:43] VITALS: BMI 44.0
--- NOTE | 2024-11-04 08:05 | P.GSHP ---
History of Present Illness H&P Date: 11/04/24 CHIEF COMPLAINT: Colon screen HISTORY OF PRESENT ILLNESS: The patient is a 64-year-old female who presents for colon screen. Lower endoscopy was offered for further evaluation and management. PAST MEDICAL HISTORY: Please see list. PAST SURGICAL HISTORY: Please see list. MEDICATIONS: Please see list. ALLERGIES: Please see list. SOCIAL HISTORY: No illicit drug use FAMILY HISTORY: No reports of Crohn disease or ulcerative colitis. REVIEW OF ORGAN SYSTEMS: CONSTITUTIONAL: No reports of fevers or chills. PHYSICAL EXAM: VITAL SIGNS: Stable GENERAL: Well-developed pleasant in no acute distress. HEENT: No scleral icterus. Extraocular movements grossly intact. Moist buccal mucosa. NECK: Supple without lymphadenopathy. CHEST: Unlabored respirations. Equal bilateral excursions. CARDIOVASCULAR: Regular rate and rhythm. Distal 2+ pulses. ABDOMEN: Soft, nontender, nondistended. MUSCULOSKELETAL: No clubbing, cyanosis, or edema. ASSESSMENT: 1. Colon screen. PLAN: 1. Recommend proceeding with a lower endoscopy Past Medical History Past Medical History: GERD/Reflux, GI Bleed, Hearing Disorder / Deafness, Hyperlipidemia, Hypertension Additional Past Medical History / Comment(s): Current tx for UTI. BLEEDING ULCER. Arthritis History of Any Multi-Drug Resistant Organisms: None Reported Past Surgical History: Ear Surgery, Hysterectomy Additional Past Surgical History / Comment(s): RECONSTRUCTION OF EAR DRUM rt. Lt hand surgery to finger. partial hysterectomy. Colonoscopy. EGD Past Anesthesia/Blood Transfusion Reactions: No Reported Reaction Additional Past Anesthesia/Blood Transfusion Reaction / Comment(s): No hx of blood transfusion to date. Smoking Status: Never smoker - Past Family History Mother Family Medical History: Cancer Father Family Medical History: Diabetes Mellitus Medications and Allergies Home Medications Medication Instructions Recorded Confirmed Type Acetaminophen [Tylenol] 325 mg PO Q4H PRN 06/15/15 11/02/24 History Levothyroxine Sodium [Synthroid] 150 mcg PO QAM 06/15/15 11/02/24 History Potassium 99 mg PO DAILY 06/15/15 11/02/24 History atenoloL 50 mg PO QAM 06/15/15 11/02/24 History Omeprazole [PriLOSEC] 40 mg PO QAM 01/21/16 11/02/24 History Citalopram Hydrobromide [CeleXA] 20 mg PO DAILY 09/04/21 11/02/24 History Ibuprofen [Motrin] 600 mg PO Q8HR PRN 09/04/21 11/02/24 History Multivitamin [Multivitamins Adult 1 each PO QAM 11/02/24 11/02/24 History Gummies] Sulfameth/Trimethoprim 1 dose PO BID 11/02/24 11/02/24 History Allergies Allergy/AdvReac Type Severity Reaction Status Date / Time Penicillins Allergy Rash/Hives Verified 11/02/24 11:31
[2024-11-04] MEDS: LACTATED RINGERS 1,000 ML IV SCH (08:17)
[2024-11-04] MEDS: IV FLUID CONTINUATION 1,000 ML IV ONE (08:18)
[2024-11-04 08:21] VITALS: TEMP 97.2
[2024-11-04] MEDS ORDERED: PROPOFOL 10 MG/ML 20 ML VIAL IV ONE (08:30)
--- NOTE | 2024-11-04 09:16 | P.PCN ---
Date of Procedure: 11/04/24 Description of Procedure: PREOPERATIVE DIAGNOSIS: History of colon polyps Colonoscopy screening. POSTOPERATIVE DIAGNOSIS: Colonoscopy screening. Diverticulosis, scattered. OPERATION: Colonoscopy to the cecum, ileocecal valve and appendiceal orifice. SURGEON: Tiffanie Bennett MD. ANESTHESIA: MAC. INDICATIONS: The patient is a 64-year-old female who presents for colonoscopy screening. Last colonoscopy over 10 years ago. Benefits and risks were described and informed consent was obtained. DESCRIPTION OF PROCEDURE: The patient had undergone Suprep. The patient had been brought into the operating room and laid in the left lateral decubitus position. After adequate intravenous sedation, the rectum was examined with 2% lidocaine jelly. No external hemorrhoids were encountered. The rectal tone was within normal limits. No lesions were palpated in the rectal vault. An Olympus colonoscope was a dvanced until the cecum, ileocecal valve and appendiceal orifice were clearly viewed. The prep was good. Scattered diverticulosis was encountered. No colonic polyps were found. No evidence of focal colitis was found. Retroflexion of the scope demonstrated grade 2 internal hemorrhoids without active bleeding or inflammation. The colon was desufflated. The patient had tolerated the procedure well. Withdrawal time was over 6 minutes. FINDINGS: Aronchick preparation quality scale 2 (1-5) with presence of retained corn Internal hemorrhoids, grade 2 No external prolapsed hemorrhoids. No arteriovenous malformations. No adenomatous polyps. No focal colitis. Scattered sigmoid diverticulosis RECOMMENDATIONS: Lower endoscopy in 5 2029 Plan - Discharge Summary Discharge Rx Participant: No New Discharge Prescriptions: Continue Levothyroxine Sodium [Synthroid] 150 mcg PO QAM atenoloL 50 mg PO QAM Potassium 99 mg PO DAILY Acetaminophen [Tylenol] 325 mg PO Q4H PRN PRN Reason: Pain Omeprazole [PriLOSEC] 40 mg PO QAM Multivitamin [Multivitamins Adult Gummies] 1 each PO QAM Sulfameth/Trimethoprim 1 dose PO BID Citalopram Hydrobromide [CeleXA] 20 mg PO DAILY Ibuprofen [Motrin] 600 mg PO Q8HR PRN PRN Reason: Pain Discharge Medication List Acetaminophen [Tylenol] 325 mg PO Q4H PRN 06/15/15 [History] Levothyroxine Sodium [Synthroid] 150 mcg PO QAM 06/15/15 [History] Potassium 99 mg PO DAILY 06/15/15 [History] atenoloL 50 mg PO QAM 06/15/15 [History] Omeprazole [PriLOSEC] 40 mg PO QAM 01/21/16 [History] Citalopram Hydrobromide [CeleXA] 20 mg PO DAILY 09/04/21 [History] Ibuprofen [Motrin] 600 mg PO Q8HR PRN 09/04/21 [History] Multivitamin [Multivitamins Adult Gummies] 1 each PO QAM 11/02/24 [History] Sulfameth/Trimethoprim 1 dose PO BID 11/02/24 [History] Follow up Appointment(s)/Referral(s): Tiffanie Bennett MD [STAFF PHYSICIAN] - As Needed Patient Instructions/Handouts: Diverticulosis (ED), Diverticulosis Diet (GEN) Activity/Diet/Wound Care/Special Instructions: Repeat colonoscopy 5 years 2030 Discharge Disposition: HOME SELF-CARE
[2024-11-04 09:25] VITALS: BP 121/67; PULSE 52; RESP 14
== END 2024-11-04 10:02 | disposition home or self-care (01) ==
LOC: ORWHC2ENDO 07:44
PROVIDERS: ATTEND Surgery Plastic and Reconstructive Surgery
DX: Z12.11 Encounter for screening for malignant neoplasm of colon (principal); K57.30 Diverticulosis of large intestine without perforation or abscess without bleeding; K64.1 Second degree hemorrhoids; Z86.0100 Personal history of colon polyps, unspecified; K21.9 Gastro-esophageal reflux disease without esophagitis; E78.5 Hyperlipidemia, unspecified; I10 Essential (primary) hypertension; M19.90 Unspecified osteoarthritis, unspecified site; J45.909 Unspecified asthma, uncomplicated; H91.90 Unspecified hearing loss, unspecified ear; Z98.890 Other specified postprocedural states; Z90.710 Acquired absence of both cervix and uterus; Z79.890 Hormone replacement therapy; Z79.899 Other long term (current) drug therapy; Z88.0 Allergy status to penicillin
CPT/HCPCS: 45378; J2704